=== PATIENT | female | born 1945 | race Caucasian/White ===

== ENCOUNTER → 2018-02-15 | Outpatient (CLI) | payer MEDICARE, BC ==
[2018-02-15 12:37] LABS: HCT 45.6 % (34.0-46.0); HGB 14.4 gm/dL (11.4-16.0); MCH 29.1 pg (25.0-35.0); MCHC 31.7 g/dL (31.0-37.0); MCV 91.9 fL (80.0-100.0); Mean Platelet Volume 7.6; Platelet Count 217 k/uL (150-450); Prothrombin Time 10.2 sec (9.0-12.0); RBC 4.96 m/uL (3.80-5.40); RDW 13.1 % (11.5-15.5); WBC 10.4 k/uL (3.8-10.6)
[2018-02-15 12:46] LABS: Potassium 4.4 mmol/L (3.5-5.1)
[2018-02-15 12:54] LABS: Appearance,Urine Clear (Clear); Bilirubin,Urine Negative (Negative); Blood,Urine Negative (Negative); Color,Urine Light Yellow; Glucose,Urine (UA) Negative (Negative); Ketones,Urine Negative (Negative); Leukocyte Esterase,Urine Negative (Negative); Nitrite,Urine Negative (Negative); Protein,Urine Negative (Negative); Urobilinogen,Urine <2.0 mg/dL (<2.0)
== END ==
LOC: LABPAT 11:13
PROVIDERS: ATTEND Thoracic Surgery (Cardiothoracic Vascular Surgery)
DX: Z01.818 Encounter for other preprocedural examination (principal); Z01.812 Encounter for preprocedural laboratory examination
CPT/HCPCS: 36415; 80051; 81003; 82565; 82947; 84520; 85027; 85610; 85730

== ENCOUNTER 2018-02-22 05:32 | Inpatient (IN) | payer MEDICARE, BC ==
[2018-02-16 12:51] VITALS: BMI 31.2
[~2018-02-22 05:32] MED LIST: ceFAZolin 1,000 MG in DEXTROSE/WATER 1 50ML.BAG IV ONE
[2018-02-22] MEDS ORDERED: LIDOCAINE 1% 20 ML VIAL (10MG/ML) FOR IV START INTRADERMA PRN (05:49)
[2018-02-22] MEDS ORDERED: SCOPOLAMINE 1.5MG/72HR PATCH TRANSDERM ONE (05:49)
[2018-02-22] MEDS ORDERED: ONDANSETRON 4 MG/2 ML VIAL IVP ONE (05:49)
[2018-02-22] MEDS ORDERED: LACTATED RINGERS 1,000 ML IV SCH (05:49)
[2018-02-22] MEDS ORDERED: DEXAMETHASONE SOD PHOSPHATE 10 MG/ML 1 ML VIAL IV ONE (05:49)
[2018-02-22] MEDS ORDERED: MIDAZOLAM 2 MG/2 ML VIAL IV PRN (05:49)
[2018-02-22] MEDS ORDERED: GLYCOPYRROLATE 0.2 MG/ML 2 ML VIAL ONE (07:33)
[2018-02-22] MEDS ORDERED: ROCURONIUM BROMIDE 10 MG/ML 10 ML VIAL IV ONE (07:33)
[2018-02-22] MEDS ORDERED: ceFAZolin 1,000 MG/50 ML BAG (PMX) IVPB ONE (07:33)
[2018-02-22] MEDS ORDERED: LIDOCAINE 1% INJ 10MG/ML (20 ML MDV) ONE (07:33)
[2018-02-22] MEDS ORDERED: SUCCINYLCHOLINE CHLORIDE 100 MG/5 ML SYR IV ONE (07:33)
[2018-02-22] MEDS ORDERED: PROPOFOL 10 MG/ML 20 ML VIAL IV ONE (07:33)
[2018-02-22] MEDS ORDERED: ePHEDrine SULFATE/0.9% NACL/PF 50 MG/5 ML SYRINGE IV ONE (07:33)
[2018-02-22] MEDS ORDERED: NEOSTIGMINE 1 MG/ML 10 ML VIAL ONE (07:33)
[2018-02-22] MEDS ORDERED: MIDAZOLAM 2 MG/2 ML VIAL ONE (07:33)
[2018-02-22] MEDS ORDERED: fentaNYL (PF) 50 MCG/ML 2 ML AMP ONE (07:33)
[2018-02-22] MEDS ORDERED: PHENYLEPHRINE-0.9% NACL SYG 1 MG/10 ML SYRINGE ONE (07:33)
[2018-02-22] MEDS ORDERED: BUPIVACAINE (PF) 0.25% 30 ML VIAL SQ ONE (08:09)
[2018-02-22] MEDS ORDERED: ACETAMINOPHEN TAB 500 MG TAB PO PRN (09:14)
[2018-02-22] MEDS: HYDROmorphone 0.5 MG/0.5 ML SYRINGE IVP PRN ×2 (09:21→09:27)
--- NOTE | 2018-02-22 09:28 | P.OP ---
Date of Procedure: 02/22/18 Preoperative Diagnosis: mass right upper lobe: ground glass infiltrate right upper lobe with new solid component Postoperative Diagnosis: same Procedure(s) Performed: right thoracoscopy with wedge resection lesion right upper lobe Anesthesia: ADELAIDEA Surgeon: Bravo Metz Estimated Blood Loss (ml): 10 IV fluids (ml): 1,000 Urine output (ml): 200 Pathology: other (wedge resection right upper lobe sent for pathology as well as cultures including routine AFB and fungus) Condition: stable Disposition: PACU Indications for Procedure: 73-year-old female is been followed for some period of time for a stable sized right upper lobe groundglass infiltrate. Her most recent CAT scan demonstrates a new solid component in the otherwise stable groundglass infiltrate. Wedge resection was recommended for diagnosis. Operative Findings: posteriorly near the apex of the right upper lobe there was a boggy region which had overlying anthracotic pigmentation of the visceral pleura. This area was wedged out with wide margins. Was cut on the back table and there was a firm area within the lung which was pale in color than the remainder of the pulmonary parenchyma. Small piece was cut out and sent for culture. Remainder was sent for pathology Description of Procedure: the patient was brought to the operating room, placed supine on the operating table, anesthetized and intubated with a double-lumen endotracheal tube. She was turned in the left lateral decubitus position and the right chest sterilely prepped and draped. 3 incisions were made in the chest and video thoracoscope was introduced through one of them. The chest was explored. There was a boggy area at the apex of the right upper lobe posteriorly with overlying anthracotic pigmented change. This was consistent with the area noted on the CAT scan. A wide wedge resection of this area was performed with multiple firings of Endo VINCENZO stapler. Specimen was placed in an Endo Catch bag and brought out onto the field. Was cut on the back table where a firm area of the lung was noted which was much paler in color and denser in consistency than the remainder of the lung tissue. A small portion of this was excised and sent for culture. The remainder was sent for permanent section. On returning to the chest the staple lines were noted to be good. 28-Macedonian chest tube was placed through separate stab incision and positioned posterior apically. Was secured with an 0 Ethibond suture. The lung was reinflated under thoracoscopic visualization. Incisions were closed with layers of Vicryl suture. Rib blocks were performed at the level of the incisions with quarter percent Marcaine. A sterile dressings were applied and the patient was turned supine and extubated and transferred to recovery room in stable condition.
--- NOTE | 2018-02-22 09:31 | XR ---
EXAMINATION TYPE: XR chest 1V portable DATE OF EXAM: 02/22/2018 COMPARISON: 10/21/2016 INDICATION: Right-sided chest tube TECHNIQUE: Single frontal view of the chest is obtained. FINDINGS: The heart size is normal. The pulmonary vasculature is normal. No pneumothorax is evident. Right-sided chest tube is present with the tip directed towards the apex. Some mild streak atelectasis may be at the left base. IMPRESSION: 1. No pneumothorax post right-sided chest tube placement. 2. Mild streak atelectasis left base
[2018-02-22] MEDS ORDERED: DEXTROSE 5%-0.45% NACL 1,000 ML IV SCH (10:31)
[2018-02-22] MEDS ORDERED: ONDANSETRON 4 MG/2 ML VIAL IVP PRN (10:31)
[2018-02-22] MEDS ORDERED: IPRATROPIUM-ALBUTEROL 3 ML NEB IH PRN (10:31)
[2018-02-22] MEDS ORDERED: HYDROcodone/APAP 5-325MG 1 EACH TAB PO PRN (10:31)
[2018-02-22] MEDS: KETOROLAC 30 MG/ML 1 ML VIAL IVP SCH ×2 (11:45→18:19)
[2018-02-22] MEDS: HYDROcodone/APAP 5-325MG 1 EACH TAB PO PRN ×3 (11:52→20:24)
[2018-02-22] MEDS: IPRATROPIUM-ALBUTEROL 3 ML NEB IH SCH ×3 (12:16→19:42)
--- NOTE | 2018-02-22 13:46 | P.CNPUL ---
History of Present Illness Consult date: 02/22/18 Requesting physician: Bravo Metz Chief complaint: S/P right upper lobe wedge resection History of present illness: Consult dated 02/22/2018 This is a 73-year-old female followed by Dr. Lopez for a pulmonary nodule over the last year. Patient was diagnosed with colon cancer in the spring. The patient's most recent CT scan of the chest performed in January 2018 showed a 4 mm area with ground-glass infiltrate, which has become nodular. A PET scan was then performed showing a 6 mm nodule showing mild uptake with SVU up to 3.8 within the nodule and there was no evidence metastasis noted. Patient has a history of hypertension, hypercholesterolemia, GERD, arthritis, chronic back pain, and previous knee replacement. The patient stated having a history of smoking, however she quit [address] Jose Alfredo Khalil is the patient's primary physician. Dr. Metz was consulted and completed a right upper lobe wedge resection today. Patient has no signs of distress and breathing easy on 2 L liters nasal cannula. Pulmonary function test did not reveal any significant obstructive lung disease in this patient. Review of Systems A 14 point review of systems was positive for pain at the surgical site. Past Medical History Past Medical History: Cancer, Eye Disorder, GERD/Reflux, Hyperlipidemia, Hypertension, Osteoarthritis (OA), Respiratory Disorder Additional Past Medical History / Comment(s): ENVIRONMENTAL ALLERGIES, SINUS PROBLEMS. SL TREMOR LEFT HAND. MINOR LEAKAGE OF HEART VALVE. HEART RACES AT TIMES WITH OCCASIONAL IRREGULAR HEART BEAT. DDD, BACK AND NECK PAIN (HX OF STEROID INJECTIONS). NODULE RUL LUNG. BASAL CELL SKIN CA, LAST EXC 01/2018. MACULAR DEGENERATION. History of Any Multi-Drug Resistant Organisms: None Reported Past Surgical History: Hysterectomy, Joint Replacement, Orthopedic Surgery Additional Past Surgical History / Comment(s): ECTOPIC RUPTURE (1970) . ORIF RT ANKLE SURGERY X2 WITH BONE GRAFT FROM RIGHT HIP. HARDWARE REMOVED RIGHT ANKLE. RT THUMB SURG, ANNA EYE CATARACT. ARTHROSCOPY RT KNEE. TOTAL LT KNEE. SPINAL BIOPSY. Past Anesthesia/Blood Transfusion Reactions: No Reported Reaction Additional Past Anesthesia/Blood Transfusion Reaction / Comment(s): "DOESNT BREATHE DEEP ENOUGH" AFTER SURGERY. HX OF BLOOD TRANSFUSION X4 (1970)- NO REACTION Smoking Status: Former smoker - Past Family History Father Family Medical History: Cancer Additional Family Medical History / Comment(s): LUNG Sister(s) Family Medical History: Cancer Additional Family Medical History / Comment(s): LEUKEMIA Medications and Allergies Home Medications Medication Instructions Recorded Confirmed Type Atenolol [Tenormin] 50 mg PO BID 07/09/15 02/22/18 History Cetirizine HCl [Zyrtec] 10 mg PO DAILY 07/09/15 02/22/18 History Fluticasone Nasal [place] [Flonase 1 spray EA NOSTRIL DAILY 07/09/15 02/22/18 History Nasal [place]] Simvastatin [Zocor] 20 mg PO HS 07/09/15 02/22/18 History Acetaminophen [Tylenol Extra 500 mg PO Q4-6H PRN 02/16/18 02/22/18 History Strength] Calcium Carbonate [Tums] 500 mg PO QID 02/16/18 02/22/18 History Cholecalciferol [Vitamin D3] 1,000 unit PO DAILY 02/16/18 02/22/18 History Vit C/E/Zn/Coppr/Lutein/Zeaxan 2 each PO DAILY 02/16/18 02/22/18 History [Preservision Areds 2 Softgel] Allergies Allergy/AdvReac Type Severity Reaction Status Date / Time codeine Allergy Unknown Rash/Hives, Verified 02/22/18 09:25 Agitation morphine Allergy Unknown Nausea & Verified 02/22/18 09:25 Vomiting Sulfa (Sulfonamide Allergy Unknown Hives Verified 02/22/18 09:25 Antibiotics) nickel Allergy BLISTERS Verified 02/22/18 09:25 adhesive tape AdvReac Severe Blisters Verified 02/22/18 09:25 Physical Exam Osteopathic Statement: *. No significant issues noted on an osteopathic structural exam other than those noted in the History and Physical/Consult. Vitals: Vital Signs Temp Pulse Pulse Pulse Resp BP Pulse Ox 02/22/18 12:37 95 02/22/18 12:30 92 02/22/18 12:19 88 02/22/18 10:20 97.5 F L 16 119/72 02/22/18 10:00 82 16 119/74 91 L 02/22/18 09:45 80 16 93 L 02/22/18 09:30 76 16 152/67 92 L 02/22/18 09:15 83 16 144/70 98 02/22/18 09:00 97.4 F L 87 16 126/60 96 02/22/18 06:07 97.2 F L 78 16 160/74 97 Intake and Output 02/21/18 02/22/18 02/22/18 22:59 06:59 14:59 Intake Total 200 1650 Output Total 60 Balance 200 1590 Intake: IV 200 650 Intake, IV Titration 1000 Amount Lactated Ringers 1,000 ml 1000 @ 20 mls/hr IV .Q24H DAMASO Rx#:[id number] Output: Chest Tube Drainage 0 Chest Tube Right Anterior 0 Chest Urine 50 Estimated Blood Loss 10 Other: # Voids 0 No acute distress, oriented 3. Nasal O2 is noted. HEENT examination is grossly unremarkable. Mucous membranes are moist. Neck supple. Full range of motion. No adenopathy thyromegaly or neck vein distention. Cardiovascular examination reveals regular rhythm rate. S1-S2 normal. No S3 or S4. No discernible murmur noted. Lungs reveal clear breath sounds equal bilaterally. No adventitious lung sounds including wheezes rhonchi or crackles. Abdomen soft bowel sounds are heard. No masses or tenderness. Extremities are intact. No cyanosis clubbing or edema. Skin is without rash or lesion. Dressing dry/ intact right upper chest incision. Chest tube intact and draining. Neurologic examination is brief but nonfocal. Results - Diagnostic Findings Chest x-ray: report reviewed, image reviewed Additional studies: Chest x-rays reviewed. There is a chest tube noted in the right chest area. Assessment and Plan Assessment: Assessment #1 S/P right upper lobe wedge resection secondary to pulmonary nodule #2 postop pain related to incision site #3 hypertension #4 hypercholesterolemia #5 GERD #6 History of colon carcinoma Plan: Plan 02/22/2018 Patient appears comfortable. Encouraged incentive spirometry every hour while awake. Encouraged coughing and deep breathing. Continue patient on 2 L nasal cannula. Chest x-ray reviewed showed no pneumothorax post right-sided chest tube placement and mild atelectasis in the left base. Repeat chest x-ray in a.m. Biopsies were sent for pathology from wedge resection. Patient will follow up with Dr. Lopez once discharged. Time with Patient: Greater than 30
[2018-02-22] MEDS: HEPARIN SODIUM,PORCINE 5,000 UNIT/ML 1 ML VIAL SQ SCH (16:26)
[2018-02-22] MEDS: METOCLOPRAMIDE 5 MG/ML 2 ML VIAL IVP PRN (16:27)
[2018-02-22] MEDS: ceFAZolin IN SWFI 2 GM/20 ML SYRINGE IVP SCH (16:27)
[2018-02-22] MEDS: ATENOLOL 50 MG TAB PO SCH (20:24)
[2018-02-22] MEDS ORDERED: ATORVASTATIN 10 MG TAB PO SCH (21:00)
[2018-02-23] MEDS: METOCLOPRAMIDE 5 MG/ML 2 ML VIAL IVP PRN ×2 (00:04→09:31)
[2018-02-23] MEDS: KETOROLAC 30 MG/ML 1 ML VIAL IVP SCH ×3 (00:04→11:19)
[2018-02-23] MEDS: HEPARIN SODIUM,PORCINE 5,000 UNIT/ML 1 ML VIAL SQ SCH ×2 (00:05→09:24)
[2018-02-23] MEDS: ceFAZolin IN SWFI 2 GM/20 ML SYRINGE IVP SCH (00:05)
[2018-02-23] MEDS: HYDROcodone/APAP 5-325MG 1 EACH TAB PO PRN ×3 (02:01→12:28)
[2018-02-23 07:39] LABS: HGB 12.9 gm/dL (11.4-16.0); MCH 29.3 pg (25.0-35.0); MCHC 32.3 g/dL (31.0-37.0); MCV 90.8 fL (80.0-100.0); Mean Platelet Volume 7.5; Platelet Count 165 k/uL (150-450); RBC 4.41 m/uL (3.80-5.40); RDW 13.2 % (11.5-15.5); WBC 12.1 k/uL (3.8-10.6)
--- NOTE | 2018-02-23 08:04 | XR ---
EXAMINATION TYPE: XR chest 1V DATE OF EXAM: 02/23/2018 COMPARISON: 02/22/2018 INDICATION: Pneumothorax, post VATS TECHNIQUE: Single frontal view of the chest is obtained. FINDINGS: The heart size is normal. The pulmonary vasculature is normal. Right-sided chest tube is present. A small right apical pneumothorax is present estimated at 15%. Thi s is increased from the comparison study. There is elevation of the right diaphragm. Minimal subsegmental atelectasis not excluded at the left base. IMPRESSION: 1. Small increasing right apical pneumothorax. A Red level critical message alert has been initiated for Trupti Henderson via the [facility] Results System on 02/23/2018 8:02 AM. This message alert has been sent to Trupti Henderson via the prefe rences provided by the clinician for the receipt of Radiology Critical Findings. Message ID [id number].
[2018-02-23 08:23] LABS: Anion Gap 8 mmol/L; Blood Urea Nitrogen 14 mg/dL (7-17); Calcium 8.7 mg/dL (8.4-10.2); Carbon Dioxide 26 mmol/L (22-30); Chloride 102 mmol/L (98-107); Glucose 118 mg/dL (74-99); Potassium 4.5 mmol/L (3.5-5.1); Sodium 136 mmol/L (137-145)
[2018-02-23] MEDS ORDERED: LORATADINE 10 MG TAB PO SCH (09:00)
[2018-02-23] MEDS ORDERED: FLUTICASONE 50MCG/SPRAY NASAL 16GM EA NOSTRIL SCH (09:00)
[2018-02-23] MEDS ORDERED: CHOLECALCIFEROL 1,000 UNIT TAB PO SCH (09:00)
[2018-02-23] MEDS ORDERED: VIT A,C & E-LUTEIN-MINERALS 1 EACH TAB PO SCH (09:00)
[2018-02-23] MEDS: IPRATROPIUM-ALBUTEROL 3 ML NEB IH SCH ×2 (09:07→13:14)
[2018-02-23] MEDS: ATENOLOL 50 MG TAB PO SCH (09:24)
[2018-02-23 10:46] VITALS: RESP 20
[2018-02-23 12:27] VITALS: BP 148/84; TEMP 98.3
[2018-02-23 13:24] VITALS: PULSE 92
--- NOTE | 2018-02-23 13:52 | P.PN ---
Subjective Progress Note Date: 02/23/18 Principal diagnosis: Status post wedge resection, right upper lobe, lung mass Progress note dated 02/23/2018 73-year-old female followed by my partner in the office. She has a pulmonary nodule in the right upper lung. The nodule became more solid in nature and the patient was sent to Dr. Metz for consideration of laser resection. It was positive on the PET scan. She has a history of hypertension hyperlipidemia GERD and arthritis chronic back pain and previous knee replacement. She sees Dr. Jose Alfredo Khalil as her primary doctor. Anyway, the patient did have the wedge resection. She's doing well. She possibly may be discharged home today. She's feeling well. She denies any shortness of breath cough wheezing or phlegm production. She does have some pain at the surgical site. The chest tube has been removed. She is not requiring any supplemental oxygen. Pulmonary function test done in our office were stable. Objective - Vital Signs Vital signs: Vital Signs Temp 98.3 F 02/23/18 12:00 Pulse 92 02/23/18 13:23 Resp 20 02/23/18 12:00 BP 148/84 02/23/18 12:00 Pulse Ox 94 L 02/23/18 12:00 Intake & Output 02/22/18 02/23/18 02/23/18 18:59 06:59 18:59 Intake Total 2620 Output Total 234 50 250 Balance 2386 -50 -250 Weight 72.575 kg 73.1 kg Intake: IV 650 Intake, IV Titration 1600 Amount Dextrose 5%-0.45% NaCl 1, 600 000 ml @ 40 mls/hr IV . Q24H DAMASO Rx#:[id number] Lactated Ringers 1,000 ml 1000 @ 20 mls/hr IV .Q24H DAMASO Rx#:[id number] Oral 370 Output: Chest Tube Drainage 37 49 Chest Tube Right Anterior 37 49 Chest Drainage 37 Right Anterior Chest 37 Urine 50 1 250 Emesis 100 Estimated Blood Loss 10 Other: Voiding Method Toilet # Voids 2 - Exam No acute distress, oriented 3. No supplemental oxygen noted. HEENT examination is grossly unremarkable. Mucous membranes are moist. No oral lesions. Neck supple. Full range of motion. No adenopathy thyromegaly or neck vein distention. Cardiovascular examination reveals regular rhythm rate. S1-S2 normal. No S3 or S4. No discernible murmur noted. Lungs reveal clear breath sounds. Breath sounds are equal bilaterally. No adventitious lung sounds including wheezes rhonchi or crackles. Abdomen soft bowel sounds are heard. No masses or tenderness. Extremities are intact. No cyanosis clubbing or edema. Skin is without rash or lesion. Neurologic examination is brief but nonfocal. - Labs CBC & Chem 7: 02/23/18 06:53 02/23/18 06:53 Labs: Abnormal Lab Results - Last 24 Hours (Table) 02/23/18 02/23/18 Range/Units 06:53 06:53 WBC 12.1 H (3.8-10.6) k/uL Sodium 136 L (137-145) mmol/L Glucose 118 H (74-99) mg/dL Microbiology - Last 24 Hours (Table) 02/22/18 08:28 Gram Stain - Preliminary Lung - Right Upper Lobe Tissue Culture - Preliminary 02/22/18 08:28 Acid Fast Bacilli Smear - Final Lung - Right Upper Lobe Acid Fast Bacilli Culture - Preliminary 02/22/18 08:28 Fungal Culture - Preliminary Lung - Right Upper Lobe 02/22/18 08:28 Anaerobic Culture - Preliminary Lung - Right Upper Lobe Assessment and Plan Assessment: Assessment #1 S/P right upper lobe wedge resection secondary to pulmonary nodule, postop day #1 #2 postop pain related to incision site #3 hypertension #4 hypercholesterolemia #5 GERD #6 History of skin cancer Plan: Plan 02/22/2018 Patient appears comfortable. Encouraged incentive spirometry every hour while awake. Encouraged coughing and deep breathing. Continue patient on 2 L nasal cannula. Chest x-ray reviewed showed no pneumothorax post right-sided chest tube placement and mild atelectasis in the left base. Repeat chest x-ray in a.m. Biopsies were sent for pathology from wedge resection. Patient will follow up with Dr. Lopez once discharged. Plan dated 02/23/2018 The patient seems be doing relatively well. The patient will be likely discharged today or tomorrow. The patient is not requiring any supplemental oxygen. The patient will need to follow with my partner for results of the wedge resection. She denies any significant pulmonary complaints including shortness of breath chest tightness wheezing cough phlegm production or hemoptysis. She does have some pain at the surgical site. Laboratory data includes a white count of 12.1, hemoglobin 12.9, hematocrit 40.0 and platelet count 165,000. Sodium 136 potassium chloride CO2 anion gap BUN and creatinine all normal. Time with Patient: Less than 30
--- NOTE | 2018-02-23 14:42 | P.DS ---
Providers Date of admission: 02/22/18 05:32 Expected date of discharge: 02/23/18 Attending physician: Bravo Metz Consults: 02/22/18 10:31 Consult Physician Routine Consulting Provider: Familia Rose Reason/Comments: pulm managment after vats Do you want consulting provider notified?: Yes Primary care physician: Jose Alfredo Khalil MD Hospital Course: FINAL DIAGNOSIS: 1. Mass right upper lobe: Groundglass infiltrate right upper lobe with a new solid component 2. Hypertension 3. Osteoarthritis with previous knee replacement 4. Hypercholesterolemia 5. Gastroesophageal reflux disease 6. Chronic lower back pain 7. Remote history of nicotine dependence quit smoking 28 years ago PRINCIPAL PROCEDURE: 1. Right thorascopy with wedge resection lesion right upper lobe. HISTORY OF PRESENT ILLNESS: This is a 73-year-old female patient who is followed by Dr. Jose Alfredo Khalil on an outpatient basis. She has a past medical history significant for hypertension, osteoarthritis with previous knee replacement, hypercholesterolemia, GERD, chronic low back pain and history of mass to her right upper lobe with groundglass infiltrate to her right upper lobe with a new solid component. The patient had been getting injections to her back for treatment to her chronic back pain. Subsequently she underwent a MRI which demonstrated a right upper lobe mass. She had follow-up CT scans of her chest completed and her most recent computed tomography scan performed on January 15 shows a 4 mm area within the groundglass infiltrate which had become nodular. The overall groundglass infiltrate although had not changed. Subsequently for further evaluation the patient underwent a PET scan which showed a 6 mm nodule to her right upper lobe with mild uptake and an SUV uptake to 3.8 within the nodule. It did not demonstrate any evidence of metastatic disease. She was referred to Dr. Bravo Metz from cardiothoracic surgery for further treatment recommendations. The results of her CT scans and PET scans were reviewed with the patient and a right thorascopy procedure with wedge resection was recommended. The patient decided to proceed with the thoracoscopic procedure. HOSPITAL COURSE: The patient was admitted to the hospital and after obtaining consent was taken to the operating room where Dr. Bravo Metz performed a right thorascopic wedge resection to the lesion to her right upper lobe. She was recovered, and transferred to [address] [place] [address] for further monitoring and rehabilitation. Her right pleural chest tube was discontinued, she was weaned off oxygen and was ready to be discharged home on postoperative day #1. Her pathology results are pending. Her discharge medications, activity restrictions and follow-up appointments were reviewed with the patient and her . COMPLICATIONS: There were no postoperative complications. CONSULTATIONS: 1. Dr. Rose for pulmonary management DISCHARGE INSTRUCTIONS: 1. No driving for 2 weeks, or until physician gives their ok. 2. The patient should sleep in their own bed, no medical bed needed. 3. Stairs are not an issue. If the bedroom is upstairs, it is advised that the patient go up at night and down in the morning for the first week. Go slowly, using handrail and take 1 step at a time. 4. Continue pain control per current when necessary orders. A prescription for [place] 5/325 mg 1 by mouth every 6 hours when necessary pain 3 days has been given to the patient. Continue home medications as previously prescribed. 5. Remove dressings to her right chest tube insertion site on Monday morning. Routine incision care, No ointments, powders or creams to be applied. 6. Please notify the surgeon/nurse practitioner for temperature greater than 10 1F or purulent drainage from incisions. 7. Continue use of her incentive spirometry every hour while awake. 8. May shower on 02/25/2018. Plan - Discharge Summary Discharge Rx Participant: Yes New Discharge Prescriptions: New HYDROcodone/APAP 5-325MG [[place] 5-325] 1 each PO Q6HR PRN #12 tab PRN Reason: Mild Pain Continue Simvastatin [Zocor] 20 mg PO HS Fluticasone Nasal [place] [Flonase Nasal [place]] 1 spray EA NOSTRIL DAILY Cetirizine HCl [Zyrtec] 10 mg PO DAILY Atenolol [Tenormin] 50 mg PO BID Calcium Carbonate [Tums] 500 mg PO QID Vit C/E/Zn/Coppr/Lutein/Zeaxan [Preservision Areds 2 Softgel] 2 each PO DAILY Cholecalciferol [Vitamin D3] 1,000 unit PO DAILY No Action Acetaminophen [Tylenol Extra Strength] 500 mg PO Q4-6H PRN PRN Reason: Pain Discharge Medication List Atenolol [Tenormin] 50 mg PO BID 07/09/15 [History] Cetirizine HCl [Zyrtec] 10 mg PO DAILY 07/09/15 [History] Fluticasone Nasal [place] [Flonase Nasal [place]] 1 spray EA NOSTRIL DAILY 07/09/15 [History] Simvastatin [Zocor] 20 mg PO HS 07/09/15 [History] Acetaminophen [Tylenol Extra Strength] 500 mg PO Q4-6H PRN 02/16/18 [History] Calcium Carbonate [Tums] 500 mg PO QID 02/16/18 [History] Cholecalciferol [Vitamin D3] 1,000 unit PO DAILY 02/16/18 [History] Vit C/E/Zn/Coppr/Lutein/Zeaxan [Preservision Areds 2 Softgel] 2 each PO DAILY [History] HYDROcodone/APAP 5-325MG [[place] 5-325] 1 each PO Q6HR PRN #12 tab 02/23/18 [Rx] Follow up Appointment(s)/Referral(s): Jose Alfredo Khalil MD [Primary Care Provider] - As Needed Bravo Metz MD [STAFF PHYSICIAN] - 03/14/18 1:30 pm Najma Snider MD [REFERRING] - As Needed Barrington Lopez MD [STAFF PHYSICIAN] - 03/07/18 2:00 pm Discharge Disposition: HOME SELF-CARE
--- NOTE | 2018-02-23 14:48 | XR ---
EXAMINATION TYPE: XR chest 1V portable DATE OF EXAM: 02/23/2018 COMPARISON: 02/23/2018 same date INDICATION: Post chest tube removal TECHNIQUE: Single frontal view of the chest is obtained. FINDINGS: The heart size is normal. The pulmonary vasculature is normal. Some plate atelectasis may be at the cardiac apex. A bag maker Residual right apical pneumothorax is present. Chest tube is been removed. IMPRESSION: 1. No significant residual pneumothorax present. Some very minimal right apical pneumothorax may jewel in present diminished from comparison.
--- NOTE | 2018-02-27 12:31 | CDI ---
Last Revision, March 2017 Documentation Clarification Form Date: 02/27/18 From: DEBBIE Champagne Phone: If you have question, contact Leticia Salcedo at [phone] M-F 8:30 am to 6pm. Admit Date: 02/22/2018 5:32:00 AM Patient Name: Frida Larsen Visit Number: [id number] Discharge Date: 02/22/18 ATTENTION: The Clinical Documentation Specialists (CDI) and [facility] Coding Staff appreciate your assistance in clarifying documentation. Please respond to the clarification below the line at the bottom and electronically sign. The CDI & [facility] Coding staff will review the response and follow-up if needed. Please note: Queries are made part of the Legal Health Record. If you have any questions, please contact the author of this message via ITS. 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 Yes No Other (please specify) Unable to determine No. Please see report from [facility] pathology deprtment [facility]TD[facility]
== END 2018-02-23 15:47 | disposition home or self-care (01) | DRG 167 ==
LOC: 2ORMAIN 05:32 → EDSTATUS 07:30 → 3SCARD 08:50
PROVIDERS: ADMIT Thoracic Surgery (Cardiothoracic Vascular Surgery); ATTEND Thoracic Surgery (Cardiothoracic Vascular Surgery)
PROC: 0BBC4ZX Excision of Right Upper Lung Lobe, Percutaneous Endoscopic Approach, Diagnostic (ICD-10-PCS; principal; 2018-02-22 07:30)
DX: C34.11 Malignant neoplasm of upper lobe, right bronchus or lung (principal); C18.9 Malignant neoplasm of colon, unspecified; I10 Essential (primary) hypertension; M19.90 Unspecified osteoarthritis, unspecified site; E78.00 Pure hypercholesterolemia, unspecified; K21.9 Gastro-esophageal reflux disease without esophagitis; M54.5 Low back pain; G89.29 Other chronic pain; Z96.652 Presence of left artificial knee joint; E78.5 Hyperlipidemia, unspecified; H35.30 Unspecified macular degeneration; Z87.891 Personal history of nicotine dependence; Z85.828 Personal history of other malignant neoplasm of skin; Z80.6 Family history of leukemia; Z90.710 Acquired absence of both cervix and uterus
CPT/HCPCS: 71045; 80048; 85027; 87070; 87075; 87102; 87116; 87205; 87206; 88307; 88341; 88342; 94640

== ENCOUNTER 2019-02-07 06:46 | Day surgery (SDC) | payer MEDICARE, BC ==
[2019-02-04 16:11] VITALS: BMI 30.7
[~2019-02-07 06:46] MED LIST changes: +DEXAMETHASONE SOD PHOSPHATE 10 MG/ML 1 ML VIAL IV ONE; +LACTATED RINGERS 1,000 ML IV SCH; +LIDOCAINE 1% 20 ML VIAL (10MG/ML) FOR IV START INTRADERMA PRN; +ONDANSETRON 4 MG/2 ML VIAL IVP ONE; -ceFAZolin 1,000 MG in DEXTROSE/WATER 1 50ML.BAG IV ONE
[2019-02-07] MEDS ORDERED: MIDAZOLAM 2 MG/2 ML VIAL ONE (08:47)
[2019-02-07] MEDS ORDERED: NEOSTIGMINE 1 MG/ML 10 ML VIAL ONE (08:47)
[2019-02-07] MEDS ORDERED: SUCCINYLCHOLINE CHLORIDE 100 MG/5 ML SYR IV ONE (08:47)
[2019-02-07] MEDS ORDERED: PHENYLEPHRINE-0.9% NACL SYG 1 MG/10 ML SYRINGE ONE (08:47)
[2019-02-07] MEDS ORDERED: ePHEDrine SULFATE/0.9% NACL/PF 50 MG/5 ML SYRINGE IV ONE (08:47)
[2019-02-07] MEDS ORDERED: KETAMINE 10 MG/ML 20 ML VIAL ONE (08:47)
[2019-02-07] MEDS ORDERED: LIDOCAINE 1% INJ 10MG/ML (20 ML MDV) ONE (08:47)
[2019-02-07] MEDS ORDERED: fentaNYL (PF) 50 MCG/ML 2 ML AMP ONE (08:47)
[2019-02-07] MEDS ORDERED: ROCURONIUM BROMIDE 10 MG/ML 10 ML VIAL IV ONE (08:47)
[2019-02-07] MEDS ORDERED: GLYCOPYRROLATE 0.2 MG/ML 2 ML VIAL ONE (08:47)
[2019-02-07] MEDS ORDERED: PROPOFOL 10 MG/ML 20 ML VIAL IV ONE (08:47)
[2019-02-07] MEDS ORDERED: LACTATED RINGERS 1,000 ML IV ONE (09:30)
--- NOTE | 2019-02-07 11:29 | FL ---
Fluoroscopy History: Arthrodesis Arthrodesis rt foot, 43 seconds fl
[2019-02-07 11:51] VITALS: TEMP 97.8
--- NOTE | 2019-02-07 11:55 | P.OP ---
Date of Procedure: 02/07/19 Preoperative Diagnosis: 1. 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 Right gastrocnemius equinus contracture 3. Right third webspace Narayanan's neuroma Postoperative Diagnosis: Same Procedure(s) Performed: 1. Arthrodesis multiple midtarsal joints, right foot (first and second tarsometatarsal joint arthrodesis) 2. Gastrocnemius recession, right leg 3. Third webspace Narayanan's neuroma excision 4. Application of short-leg splint by physician, right leg Anesthesia: GETA, regional Surgeon: David Buck Linoleum Tile Layer #1: Melecio Fitzgerald Estimated Blood Loss (ml): 10 IV fluids (ml): 800 Condition: stable Disposition: PACU Indications for Procedure: A pleasant 74-year-old female who presented to my office with multiple complaints in regards to her right foot. The patient had had several years of progressively worsening symptoms. She previously been managed by podiatry with corticosteroid injections, orthotics, NSAID pain medication, therapy, and she will modification all with diminishing relief. She presented to my office having failed over 6 months of nonsurgical treatment and requesting surgery. Clinically the patient had symptomatic arthritis of the first and second tarsometatarsal joints, third webspace tenderness consistent with a neuroma and a gastrocnemius equinus contracture. Her x-rays showed diffuse osteopenia and arthritis mostly involving the second tarsometatarsal joint. Since she had failed over 6 months of nonsurgical treatment we discussed it was reasonable to go forward with surgery. My recommendation was to perform a midfoot fusion of the first and second tarsometatarsal joint. We also discussed offloading the midfoot and forefoot with a gastrocnemius recession. Since she had third webspace tenderness and response to steroid injection by her marketing liaison we discu ssed it was reasonable to explore the third webspace and perform a neuroma excision. We discussed the potential risks and complications of surgery including but not limited to risk of anesthesia, superficial infection, deep infection, delayed wound healing, wound necrosis, nonunion of the fusion sites, malunion of the fusion sites, intraoperative fracture, postoperative fracture, symptomatic hardware, damage to local blood vessels or nerves, continued or worsened pain, damage to the interosseous muscles, damage to the lumbricals, lesser toe deformities, H or recurrent neuroma, DVT, PE, other medical complications, generalized dissatisfaction with her surgical outcome, and inability to regain preinjury level of function, and possibly loss of life or limb. The patient voiced her understanding of these potential complications and also analysis other less common complications are possible. She provided her verbal and written consent to go forward with surgery. Operative Findings: The patient had extremely poor bone quality. As I attempted to place solid lag screws across the first tarsometatarsal joint the dorsal cortex of the first metatarsal began breaking. At this point, I chose to use a dorsal plate due to the patient's poor bone quality. The plate was contoured to fit over the dorsal aspect of the first TMT joint, but as the plate was brought down to bone proximally with nonlocking screws a created a small amount of plantar gapping across the first tarsometatarsal joint. Rather than remove the plate and extending the surgical procedure and further damaging the bony anatomy I elected to pack the plantar aspect of the joint with crushed cancellus autograft mixed with augment. The dorsal aspect of the joint appeared to be nicely compressed. The second tarsometatarsal joint had excellent compression and fixation with a single staple. Description of Procedure: The patient was identified in preop holding and the correct right leg was marked with my initials. I reviewed the consent form with the patient and her . All of their questions were answered. The patient was given a block by anesthesia. She was then brought back to the operating room. She was positioned on the OR table where a general anesthetic and preoperative antibiotics were given. A tourniquet was applied the proximal aspect of the right leg. A Silfverskiold test was then performed all the patient was under anesthesia. I was able to passively dorsiflex the ankle past neutral with the knee bent but was unable to passively flex the ankle past neutral with the knee extended. I interpreted this as an isolated contracture of the gastrocnemius. The patient's right leg was then prepped and draped in the standard sterile fas hion. Prior to starting surgery timeout was performed identifying the correct patient, operative extremity, and procedure. The patient's leg was then elevated, exsanguinated with an Esmarch bandage, and the tourniquet was inflated to 250 mmHg. I began by performing a gastrocnemius recession. A 3 cm incision was made just distal to the medial muscle belly of the gastrocnemius 1 thumb breadth posterior to the tibia. Dissection was carried down carefully to the subcutaneous tissue with tenotomy scissors. The superficial fascia was incised. I bluntly developed the interval between the gastrocnemius aponeurosis and superficial fascia and between the gastrocnemius aponeurosis and soleus fascia. The sural nerve was found to be adherent to the superficial fascia. Modified right angle retractors were placed and the gastrocnemius aponeurosis was cut in its entirety from medial to lateral. Upon releasing the gastrocnemius aponeurosis I verified that the sural nerve was still intact. The wound was then thoroughly irrigated with sterile saline and closed in layers with 2-0 Vicryl the deep subcu and a running 3-0 Monocryl subcuticular stitch for the skin. I next turned my attention to the dorsal midfoot. A dorsomedial incision was marked out centered between the first and second metatarsals extending proximally over the midfoot. Dissection was carried down carefully to the subt enon's tissue with tenotomy scissors. Crossing veins were controlled with electrocautery. Dorsal Crossing nerves were carefully retracted. The periosteum over the first and second metatarsal metatarsal joints were sharply elevated exposing the joints. On inspection of both joints there was full- thickness cartilage loss through the majority of the second tarsometatarsal joint. There is cartilage loss dorsally over the first tarsometatarsal joint and large spurs. The spurs were carefully contoured with a James. K wires were then placed in the medial cuneiform and first metatarsal and a distractor was used to allow exposure of the joint. I carefully removed articular cartilage from the first metatarsal base and medial cuneiform. The bone was found to be very soft and it was difficult removing the cartilage without removing underlying subchondral bone. I carefully removed all of the cartilage taking special care to remove all the cartilage plantarly to prevent inadvertently dorsiflexing the joint. The wound was then thoroughly irrigated and the subchondral bone appeared to be completely devoid of articular cartilage. Both prepared surfaces were thoroughly fenestrated with a 2.0 mm drill bit to facilitate fusion. Attention was then turned to the second tarsometatarsal joint. K wires were placed in the joint was distracted. The remaining articular cartilage is removed. The wound was thoroughly irrigated. A 2.0 mm drill bit was used to fenestrate both the second metatarsal base and middle cuneiform to facilitate fusion. The joints were then carefully positioned for fusion and eccentric K wires were placed a crossed both joints holding them in position. Fluoroscopy was used to verify that the joints were adequately compressed and well aligned in both an AP and lateral plane. I initially attempted to place nonlocking lag screws across the joint but as the screws brought down the bone began to fracture. At that point I elected to place a dorsal plate due to the patient's poor bone quality. The plate was contoured to fit the patient's anatomy and held down with olive tipped K wires. A nonlocking and locking 2.7 mm screw were placed distally in the plate. The position of the plate was verified with fluoroscopy. A lag screw was then placed through the plate in a retrograde fashion from the base of the first metatarsal into the medial cuneiform. The screw head decent purchase and nicely compressed the bone. I then placed a nonlocking 2.7 mm screw proximally through the plate into the medial cuneiform. As the plate was brought down to bone and there was a small amount of plantar distraction. I slightly backed off the proximal nonlocking screw, but there were still small amount of plantar gapping. Rather than take the plate off and provide further soft tissue and bony destruction I elected to leave the plate in place as there appeared to be adequate compression dorsally and across the midportion of the joint. The plantar aspect of the joint was packed with a mixture of crushed cancellus allograft an augment. Attention was then turned to the second tarsometatarsal joint. It appeared to be adequately compressed clinically and on fluoroscopy. An 18 mm staple was dispensed. The guide was used and drill holes were made in the central portion of the middle cuneiform and second metatarsal base. A staple was dispensed and gently tapped into place. The insertion device was removed and the staple was fully and packed it. Clinically both the first and second tarsometatarsal joint appeared to be nicely compressed. The remaining crushed cancellus allograft/augment mixture was packed around Boesch fusion sites. The wound was gently irrigated and closed in layers with a 3-0 Monocryl over the periosteum and capsular layer, simple interrupted 3-0 Monocryl subcutaneous stitches, and 3-0 nylon horizontal mattress stitches for the skin. Attention was then turned to the third webspace. A centimeter incision was made longitudinally in the third webspace. Dissection was carried down carefully to the subtenon's tissue with tenotomy scissors. The transverse intermetatarsal ligament was identified. A Torrance was placed under the ligament and it was sharply released. The common interdigital nerve was identified proximally and retracted distally into the webspace. There was a very small area of bulbous thickening which was sharply excised. Due to Anoop's recent study on utility of pathology in webspace excision I elected not to send the nerve to pathology. The wound was thoroughly irrigated and closed in layers with 3-0 Monocryl for the subcu, and 3-0 nylon for the skin. Final fluoroscopic images were taken. A sterile dressing consisting of Betadine soaked Adaptic, 4 x 4, and web roll was applied. The tourniquet was let down. A well-padded bulky Love splint was placed with the ankle at neutral. The patient was awoken from her anesthetic, transferred to a gurney, and brought to PACU without the procedure well.
[2019-02-07] MEDS: HYDROmorphone 0.5 MG/0.5 ML SYRINGE IVP PRN ×2 (12:05→12:11)
[2019-02-07] MEDS: fentaNYL (PF) 50 MCG/ML 2 ML AMP IV PRN ×2 (12:08→12:24)
[2019-02-07] MEDS ORDERED: HYDROcodone/APAP 5-325MG 1 EACH TAB PO ONE (13:19)
[2019-02-07] MEDS ORDERED: ONDANSETRON ODT 4 MG TAB PO ONE (15:20)
[2019-02-07 15:55] VITALS: BP 135/87; PULSE 81; RESP 16
== END 2019-02-07 16:09 | disposition home or self-care (01) ==
LOC: OR 06:46
PROVIDERS: ATTEND Orthopaedic Surgery
DX: M19.071 Primary osteoarthritis, right ankle and foot (principal); M62.461 Contracture of muscle, right lower leg; G57.61 Lesion of plantar nerve, right lower limb; I10 Essential (primary) hypertension; E78.5 Hyperlipidemia, unspecified; R63.5 Abnormal weight gain; Z68.30 Body mass index [BMI] 30.0-30.9, adult; Z97.3 Presence of spectacles and contact lenses; K21.9 Gastro-esophageal reflux disease without esophagitis; R51 Headache; H35.30 Unspecified macular degeneration; Z87.891 Personal history of nicotine dependence; Z96.652 Presence of left artificial knee joint; Z90.710 Acquired absence of both cervix and uterus; Z83.3 Family history of diabetes mellitus; Z82.49 Family history of ischemic heart disease and other diseases of the circulatory system; Z85.828 Personal history of other malignant neoplasm of skin; Z85.118 Personal history of other malignant neoplasm of bronchus and lung; Z87.81 Personal history of (healed) traumatic fracture; Z79.899 Other long term (current) drug therapy; Z88.5 Allergy status to narcotic agent; Z88.2 Allergy status to sulfonamides; Z91.048 Other nonmedicinal substance allergy status; Z91.09 Other allergy status, other than to drugs and biological substances
CPT/HCPCS: 27687; 28730; 28080; 73620; C1713 ×3; J2250; J1100; J2710; J0690; J2405; J2001; J3010; J2370; J0330; J2704; J1170

== ENCOUNTER → 2019-02-20 | Outpatient (CLI) | payer MEDICARE, BC | END | disposition home or self-care (01) | LOC: LABWHC1 14:27 | PROVIDERS: ATTEND Orthopaedic Surgery | DX: E55.9 Vitamin D deficiency, unspecified (principal); M79.671 Pain in right foot; M19.071 Primary osteoarthritis, right ankle and foot; G57.61 Lesion of plantar nerve, right lower limb; M21.6X1 Other acquired deformities of right foot; I10 Essential (primary) hypertension; E78.5 Hyperlipidemia, unspecified; Z68.30 Body mass index [BMI] 30.0-30.9, adult; Z85.9 Personal history of malignant neoplasm, unspecified; Z87.891 Personal history of nicotine dependence; Z48.89 Encounter for other specified surgical aftercare | CPT/HCPCS: 36415; 82306 ==